=== PATIENT | male | born 1985 | race Caucasian/White ===

== ENCOUNTER 2021-02-13 05:25 | Emergency (ER) | payer SELFPAY ==
[~2021-02-13] VITALS: Ht 175.3 cm; Wt 76.4 kg
[2021-02-13 05:32] VITALS: BP 124/71
[2021-02-13] MEDS ORDERED: [UNRECOGNIZED DRUG - OTHER] NASAL (05:42)
[2021-02-13] MEDS ORDERED: [UNRECOGNIZED DRUG - OTHER] PO (05:42)
== END 2021-02-13 06:27 | disposition left against medical advice (07) ==
LOC: EMS 05:26
DX: R04.0 Epistaxis (principal); Z53.21 Procedure and treatment not carried out due to patient leaving prior to being seen by health care provider